=== PATIENT | male | born 1985 | race Hispanic/Latino ===

== ENCOUNTER 2023-08-12 16:06 | Outpatient (CLI) | payer BC | END 2023-08-12 16:07 | disposition home or self-care (01) | LOC: CSHRAD 16:06 | PROVIDERS: ATTEND Family Medicine Sports Medicine | DX: M25.552 Pain in left hip (principal) ==

== ENCOUNTER 2024-12-02 07:40 | Day surgery (SDC) | payer BC ==
[2024-11-24 09:38] VITALS: BMI 37.6
[2024-12-02] MEDS ORDERED: Bupivacaine PF 0.5% 30 ML VIAL ONE (08:46)
[2024-12-02] MEDS ORDERED: CEFAZOLIN 2 GM VIAL ONE (09:08)
[2024-12-02] MEDS ORDERED: Dexamethasone 4 mg/ml Vial ONE (09:10)
[2024-12-02] MEDS ORDERED: PROPOFOL 20 ML ONE (09:10)
[2024-12-02] MEDS ORDERED: Ondansetron PF 4 MG/2 ML Vial ONE (09:10)
[2024-12-02] MEDS ORDERED: Lidocaine 1% PF 5 ML VIAL ONE (09:10)
[2024-12-02] MEDS ORDERED: fentaNYL 50 mcg/mL 1 mL Vial ONE ×3 (09:10→11:02)
[2024-12-02] MEDS ORDERED: Midazolam HCl 2 mg/2 ml Vial ONE (09:10)
[2024-12-02] MEDS ORDERED: HYDROcodone/Acetaminophen 5/325 mg Tablet ONE (11:29)
== END 2024-12-02 11:57 | disposition home or self-care (01) ==
LOC: CSHSDC 07:40
PROVIDERS: ATTEND Podiatrist Foot & Ankle Surgery
PROC: 0RGU04Z Fusion of Right Metacarpophalangeal Joint with Internal Fixation Device, Open Approach (ICD-10-PCS; principal; 2024-12-02)
DX: M20.21 Hallux rigidus, right foot (principal); I10 Essential (primary) hypertension; E11.9 Type 2 diabetes mellitus without complications; E78.5 Hyperlipidemia, unspecified; J30.2 Other seasonal allergic rhinitis; G47.33 Obstructive sleep apnea (adult) (pediatric); Z87.891 Personal history of nicotine dependence; Z79.85 Long-term (current) use of injectable non-insulin antidiabetic drugs; Z79.899 Other long term (current) drug therapy
CPT/HCPCS: C1713; J0665; J1100; J2250; J2405; J2704; J3010

== ENCOUNTER → 2025-10-13 | Day surgery (SDC) | payer BC ==
[2025-10-12 10:18] VITALS: BMI 39.4
[~2025-10-13] MED LIST: CEFAZOLIN 2 GM VIAL ONE; HYDROcodone/Acetaminophen 5/325 mg Tablet ONE; Lidocaine 1% PF 5 ML VIAL ONE; PROPOFOL 40 ML ONE
== END ==
LOC: CSHSDC 08:35
PROVIDERS: ATTEND Podiatrist Foot & Ankle Surgery
PROC: 0SPF04Z Removal of Internal Fixation Device from Right Ankle Joint, Open Approach (ICD-10-PCS; principal; 2025-10-13)
DX: T84.84XA Pain due to internal orthopedic prosthetic devices, implants and grafts, initial encounter (principal); Y83.1 Surgical operation with implant of artificial internal device as the cause of abnormal reaction of the patient, or of later complication, without mention of misadventure at the time of the procedure
CPT/HCPCS: J0665; J1100; J2704